=== PATIENT | male | born 1960 | race Caucasian/White ===

== ENCOUNTER 2016-10-27 16:26 | Outpatient (CLI) ==
[2016-06-22 14:23] VITALS: BMI 23.6
[2016-10-27 17:13] LABS: BASOPHILS % (AUTO) 0.7 % (0.0-3.0); EOSINOPHILS # (AUTO) 0.1 K/ul (0.0-0.7); EOSINOPHILS % (AUTO) 1.2 % (0.0-7.0); HEMATOCRIT 34.7 % (42.0-52.0); HEMOGLOBIN 12.4 g/dl (14.0-18.0); IMMATURE GRANULOCYTE % (AUTO) 1.2 % (0.0-5.0); LYMPHOCYTES # (AUTO) 0.6 K/uL (0.60-3.4); LYMPHOCYTES % (AUTO) 9.6 (10.0-50.0); MEAN CORPUSCULAR HEMOGLOBIN 31.4 pg (27.0-31.0); MEAN CORPUSCULAR HGB CONC 35.7 (31.8-35.4); MEAN CORPUSCULAR VOLUME 87.8 fl (80.0-94.0); MONOCYTES # (AUTO) 0.8 K/uL (0.4-2.0); MONOCYTES % (AUTO) 13.4 (0-10); NEUTROPHILS # (AUTO) 4.3 K/ul (2.0-6.9); NEUTROPHILS % (AUTO) 73.9; PLATELET COUNT 112 10^3/uL (140-440); RED BLOOD COUNT 3.95 10^6/ul (4.70-6.10); WHITE BLOOD COUNT 5.84 K/ul (4.2-10.2)
[2016-10-27 17:25] LABS: ALBUMIN 3.4 g/dL (3.4-5.0); ALBUMIN/GLOBULIN RATIO 0.85; ANION GAP 10.2; BILIRUBIN,TOTAL 2.12 mg/dL (0.00-1.20); BUN/CREATININE RATIO 37.36; CALCIUM 8.7 mg/dL (8.2-10.2); CREATININE 0.91 mg/dL (0.60-1.10); POTASSIUM 4.2 mmol/L (3.5-5.1); TOTAL PROTEIN 7.4 g/dL (6.4-8.2)
== END 2016-10-27 16:27 | disposition home or self-care (01) ==
LOC: LAB 16:26
PROVIDERS: ATTEND General Practice
DX: K70.30 Alcoholic cirrhosis of liver without ascites (principal); K75.9 Inflammatory liver disease, unspecified
CPT/HCPCS: 36415; 80053; 82140; 85025

== ENCOUNTER 2016-12-27 11:29 | Outpatient (CLI) ==
[2016-12-27 12:19] VITALS: BMI 20.2
== END 2016-12-27 11:30 ==
LOC: AMBL 11:29
PROVIDERS: ATTEND Internal Medicine
DX: R18.8 Other ascites (principal); K72.90 Hepatic failure, unspecified without coma

== ENCOUNTER 2016-12-27 11:49 | Inpatient (IN) | payer OTHER ==
[2016-12-27 12:19] VITALS: BMI 20.2
[2016-12-27] MEDS ORDERED: URO-JET MUCOUSMEMB STA (13:32)
[2016-12-27] MEDS ORDERED: CLINIMIX IV SCH (14:00)
[2016-12-27 14:23] LABS: BASOPHILS % (AUTO) 0.6 % (0.0-3.0); EOSINOPHILS # (AUTO) 0.1 K/ul (0.0-0.7); EOSINOPHILS % (AUTO) 1.4 % (0.0-7.0); HEMATOCRIT 31.4 % (42.0-52.0); HEMOGLOBIN 11.3 g/dl (14.0-18.0); IMMATURE GRANULOCYTE % (AUTO) 0.6 % (0.0-5.0); LYMPHOCYTES # (AUTO) 0.5 K/uL (0.60-3.4); LYMPHOCYTES % (AUTO) 9.1 (10.0-50.0); MEAN CORPUSCULAR HEMOGLOBIN 32.8 pg (27.0-31.0); MONOCYTES # (AUTO) 0.7 K/uL (0.4-2.0); MONOCYTES % (AUTO) 13.2 (0-10); NEUTROPHILS # (AUTO) 3.8 K/ul (2.0-6.9); NEUTROPHILS % (AUTO) 75.1; PLATELET COUNT 65 10^3/uL (140-440); RED BLOOD COUNT 3.45 10^6/ul (4.70-6.10); WHITE BLOOD COUNT 5.07 K/ul (4.2-10.2)
[2016-12-27 14:27] LABS: BILIRUBIN,URINE 1+ (NEGATIVE); KETONES,URINE Negative (NEGATIVE); LEUKOCYTE ESTERASE ,URINE Negative (NEGATIVE); NITRITE,URINE Negative (NEGATIVE); PH,URINE 5.5 (5-9); PROTEIN,URINE Negative (NEGATIVE); URINE, BLOOD Negative (NEGATIVE)
[2016-12-27 14:28] LABS: ADD URINE MICROSCOPIC NO
[2016-12-27 14:45] LABS: ALBUMIN 2.8 g/dL (3.4-5.0); ALBUMIN/GLOBULIN RATIO 0.85; BILIRUBIN,TOTAL 2.07 mg/dL (0.00-1.20); BUN/CREATININE RATIO 29.06; CREATININE 0.86 mg/dL (0.60-1.10); TOTAL PROTEIN 6.1 g/dL (6.4-8.2)
--- NOTE | 2016-12-27 14:57 | US ---
EXAM: Scrotal ultrasound. History: Scrotal swelling and redness and scrotal pain. Technique: Multiple sonographic images through the scrotum were obtained. Color duplex Doppler was used to interrogate vascular flow. Findings: The right testicle measures 2.7 cm x 1.3 cm x 2.2 cm and is without intratesticular mass identified. Blood flow is documented within the right testicle. The right epididymis is not hyperemic. The left testicle measures 2.2 cm x 1.5 cm x 2.0 cm and is without intratesticular mass identified. Blood flow is documented within the left testicle. The left epididymis is enlarged compared to the contralateral side. No significant hydroceles. Severe diffuse scrotal edema. Impression: 1. Severe diffuse scrotal edema. Correlate clinically for cellulitis and infection. 2. Normal bilateral testicles. 3. Asymmetric enlargement of the left epididymis could indicate epididymitis.
[2016-12-27] MEDS ORDERED: CLINIMIX E IV SCH (15:00)
[2016-12-27] MEDS: DILAUDID 2 MG/ML SYRINGE IVP PRN ×3 (15:01→23:07)
[2016-12-27] MEDS: CLINIMIX E IV SCH (15:12)
[2016-12-27 15:15] LABS: PARTIAL THROMBOPLASTIN TIME 32.9 SEC (23.9-40.0); PROTHROMBIN TIME 13.9 SEC (9.3-11.0)
[2016-12-27] MEDS: LASIX IVP SCH ×2 (15:45→17:39)
[2016-12-27] MEDS: LACTULOSE PO SCH ×2 (15:45→20:51)
--- NOTE | 2016-12-27 16:07 | DI ---
EXAM: CHEST FRONTAL VIEW HISTORY: Abdominal pain. COMPARISON: 06/22/2016 FINDINGS: Heart size and mediastinum remain within normal limits. Lungs are free of infiltrate. No consolidation or pleural fluid. There is no pneumothorax or acute bony finding. IMPRESSION: Findings within normal limits.
[2016-12-27] MEDS: ALDACTONE PO SCH (18:36)
[2016-12-27] MEDS ORDERED: PROTONIX IV 40 MG in SODIUM CHLORIDE 100 ML IV SCH (20:30)
[2016-12-27] MEDS ORDERED: PROTONIX IV ONE (20:58)
[2016-12-28] MEDS: CLINIMIX E IV SCH (03:47)
[2016-12-28] MEDS: LASIX IVP SCH (06:18)
[2016-12-28 06:29] LABS: BASOPHILS % (AUTO) 0.5 % (0.0-3.0); EOSINOPHILS # (AUTO) 0.1 K/ul (0.0-0.7); EOSINOPHILS % (AUTO) 1.6 % (0.0-7.0); HEMATOCRIT 26.2 % (42.0-52.0); HEMOGLOBIN 9.4 g/dl (14.0-18.0); IMMATURE GRANULOCYTE % (AUTO) 0.5 % (0.0-5.0); LYMPHOCYTES # (AUTO) 0.2 K/uL (0.60-3.4); LYMPHOCYTES % (AUTO) 3.7 (10.0-50.0); MEAN CORPUSCULAR HEMOGLOBIN 32.6 pg (27.0-31.0); MEAN CORPUSCULAR HGB CONC 35.9 (31.8-35.4); MONOCYTES # (AUTO) 0.5 K/uL (0.4-2.0); NEUTROPHILS # (AUTO) 4.8 K/ul (2.0-6.9); NEUTROPHILS % (AUTO) 85.7; PLATELET COUNT 46 10^3/uL (140-440); RED BLOOD COUNT 2.88 10^6/ul (4.70-6.10); WHITE BLOOD COUNT 5.63 K/ul (4.2-10.2)
[2016-12-28 06:49] LABS: ALBUMIN 2.3 g/dL (3.4-5.0); ALBUMIN/GLOBULIN RATIO 0.88; ANION GAP 9.3; BILIRUBIN,TOTAL 1.96 mg/dL (0.00-1.20); BUN/CREATININE RATIO 37.5; CALCIUM 7.6 mg/dL (8.2-10.2); CREATININE 0.72 mg/dL (0.60-1.10); POTASSIUM 4.3 mmol/L (3.5-5.1); TOTAL PROTEIN 4.9 g/dL (6.4-8.2)
[2016-12-28] MEDS: LACTULOSE PO SCH (09:16)
[2016-12-28] MEDS: ALDACTONE PO SCH (09:16)
[2016-12-28 10:01] VITALS: BP 108/68; TEMP 98
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
[2016-12-28] MEDS ORDERED: PROTONIX IV 40 MG in SODIUM CHLORIDE 100 ML IV SCH (21:00)
--- NOTE | 2016-12-29 14:48 | DS ---
PATIENT IDENTIFICATION: 56 year old male who was admitted yesterday because of abdominal pain and edema of the scrotum and prepuce. The patient was seen initially at the office. I had a conversation with him with regards to post hospital care. I told him that it would be best for him to go a jail after this hospitalization. His medications could be administered regularly, as well as his nutrition and also a good follow up. The patient did not say no to the idea. This patient is known to have cirrhosis of the liver with ascites and recurrent abdominal paracentesis. He was just discharged from [facility] on 12/26/2016 after being admitted for ascites and abdominal pain. He told me that 6 liters of fluid was obtained from his abdomen. The fluid gram stain and culture showed no bacterial growth. This patient was given Cipro 500 mg daily, #30 from [facility]. This patient, however , does not show any findings compatible with spontaneous bacterial peritonitis. HOSPITAL COURSE: This patient's initial labs consisted of a CBC showing moderate anemia with 11.3 hemoglobin, 31.4 hematocrit. WBC normal 5,070, platelet count 65,000. The ProTime 13.9, INR 1.35, PTT 32.9. Chemistry has some abnormalities, but not clinically significant. Sodium 132, chloride 97, BUN 25, sugar 123, calcium 8, total bilirubin 2.07, AST 52, ammonia 53, total protein 6.1, albumin 2.8, amylase 150, lipase 134, Procalcitonin 0.06 and was also normal at [facility]. Urinalysis was unremarkable. Serum alcohol level less than 10 mg percent. LUNGS: Clear to auscultation. HEART: Audible with good tones. ABDOMEN: Protuberant, but soft. FACE: The face is sunken. The patient, today, demanded that he be discharged. He was going home regardless. I did tell him that it would be best if he would stay and hopefully we can help him. He was not listening to any explanation. He was given Aminosyn 4.25 every 12 hours since admission hoping to increase his protein. His lungs remained clear to auscultation. The heart with normal sinus rhythm. He tried to get in touch with relatives to give him a ride. He told me in the presence of the nurse, Patricia, that he was going home and he would walk to town where his brother is. I called his sister and there was no answer. The phone was either disconnected or the number has changed. I called the sister's and I was able to talk to him, but he told me that he was at work and he could not give him a ride to his [id number]. I called his brother and I did not have any answer. I did advise Patricia, the nurse in charge to call the police, city and county, to see if they could give him a ride and if not [facility] [place]. PLAN: He was further instructed to resume the medications that was prescribed to him from [place]. He is prescribed Oxycodone 5, #45 to be taken one three times a day. This patient had been receiving more of the medication. He did fill the prescription on 12/08/16 of Oxycodone 5, #60 one twice a day. He already ran out of the medication. He was at [facility] 12/24/16 until 12/26/16. He is to see me in about two weeks and if and when he has problems requiring paracentesis that he should present to the hospitals that are capable of doing the procedure under guidance. [facility] does not have the capabilities to do that. He told me the other reason why he was going home is because his son is moving to another residence. His chemistries is essentially the same, except for the total protein and albumin, which is much lower than on admission. FINAL DIAGNOSES: 1. ALCOHOLIC CIRRHOSIS 2. HEPATITIS C POSITIVE 3. ELEVATED SERUM AMYLASE AND LIPASE, MAYBE CHRONIC PANCREATITIS 4. ASCITES SECONDARY TO THE CIRRHOSIS WITH RECURRENT ABDOMINAL PARACENTESIS ALMOST WEEKLY 5. 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 THROMBOCYTOPENIA This patient has a follow up appointment at [facility] in January. PROGNOSIS: Poor. MTDD
== END 2016-12-28 10:24 | disposition left against medical advice (07) | DRG 433 ==
LOC: MEDSURG B 11:49
PROVIDERS: ADMIT General Practice; ATTEND General Practice
DX: K70.31 Alcoholic cirrhosis of liver with ascites (principal); K86.1 Other chronic pancreatitis; D64.9 Anemia, unspecified; B18.2 Chronic viral hepatitis C; R74.8 Abnormal levels of other serum enzymes; N50.82 Scrotal pain; N50.89 Other specified disorders of the male genital organs; E77.8 Other disorders of glycoprotein metabolism; D69.6 Thrombocytopenia, unspecified; Z79.891 Long term (current) use of opiate analgesic; Z79.899 Other long term (current) drug therapy; Z98.890 Other specified postprocedural states
CPT/HCPCS: 36415; 80053; 80307; 81001; 82140; 82150; 83690; 83880; 84145; 85025; 85610; 85730; 87040; 87081; 93005; 93010; 99223; 99239

== ENCOUNTER 2017-01-03 09:22 | Emergency (ER) | payer OTHER ==
[2017-01-03 09:34] VITALS: BP 83/54; TEMP 98.6; BMI 21.2
[2017-01-03 09:53] LABS: BASOPHILS % (AUTO) 0.4 % (0.0-3.0); EOSINOPHILS % (AUTO) 0.4 % (0.0-7.0); HEMATOCRIT 31.6 % (42.0-52.0); IMMATURE GRANULOCYTE % (AUTO) 0.5 % (0.0-5.0); LYMPHOCYTES # (AUTO) 0.4 K/uL (0.60-3.4); LYMPHOCYTES % (AUTO) 5.6 (10.0-50.0); MEAN CORPUSCULAR HEMOGLOBIN 31.6 pg (27.0-31.0); MEAN CORPUSCULAR HGB CONC 34.8 (31.8-35.4); MEAN CORPUSCULAR VOLUME 90.8 fl (80.0-94.0); MONOCYTES # (AUTO) 0.8 K/uL (0.4-2.0); MONOCYTES % (AUTO) 10.2 (0-10); NEUTROPHILS # (AUTO) 6.1 K/ul (2.0-6.9); NEUTROPHILS % (AUTO) 82.9; PLATELET COUNT 82 10^3/uL (140-440); RED BLOOD COUNT 3.48 10^6/ul (4.70-6.10); WHITE BLOOD COUNT 7.32 K/ul (4.2-10.2)
[2017-01-03] MEDS ORDERED: MORPHINE 4 MG/ML SYRINGE IVP STA (10:13)
[2017-01-03 10:16] LABS: PARTIAL THROMBOPLASTIN TIME 32.8 SEC (23.9-40.0)
[2017-01-03 10:25] LABS: ALBUMIN 2.5 g/dL (3.4-5.0); ALBUMIN/GLOBULIN RATIO 0.83; ANION GAP 11.8; BILIRUBIN,TOTAL 3.97 mg/dL (0.00-1.20); BUN/CREATININE RATIO 20.98; CALCIUM 7.8 mg/dL (8.2-10.2); CREATININE 0.81 mg/dL (0.60-1.10); POTASSIUM 3.8 mmol/L (3.5-5.1); TOTAL PROTEIN 5.5 g/dL (6.4-8.2); TROPONIN I 0.012 ng/ml (0.0000-0.4000)
--- NOTE | 2017-01-03 10:40 | CT ---
EXAM: CT BRAIN HISTORY: Altered mental status TECHNIQUE: CT brain without intravenous contrast. 5-mm axial sections with Reformations. COMPARISON: FINDINGS: Brain is unremarkable without distinct evidence of hemorrhage or large vessel distribution recent ischemic infarction. There is no suggestion of acute hydrocephalus or subdural fluid collection. N o mass or mass effect. Cranium is within normal limits. Mastoid air cells are aerated. The visualized paranasal sinuses are clear. IMPRESSION: No acute intracranial process.
--- NOTE | 2017-01-03 10:44 | CT ---
EXAM: CT chest without contrast. HISTORY: Cough. COMPARISON: 05/03/2016. Radiograph 12/27/2016. TECHNIQUE: Multiple axial images of the chest were obtained without intravenous contrast. Images w ere reformatted in the sagittal and coronal planes. FINDINGS: Evaluation for lymphadenopathy is limited due to lack of intravenous contrast. Heart siz e is normal. No pericardial effusion. Atherosclerotic calcifications are present. Small foci of c onsolidation seen in the anterior left upper lobe and lingula on axial image 16 and 28 in the anteri or right upper lobe on axial image 14. The lungs are otherwise clear save for subsegmental atelecta sis at the lung bases and calcified granulomatous changes. No pleural effusion or pneumothorax iden tified. Limited images of the upper abdomen demonstrate cirrhosis with ascites and splenomegaly. Old compre ssion deformity of T7 noted. IMPRESSION: 1. Small foci of atelectasis or pneumonitis in the left and right upper lobes. 2. Cirrhosis with sequela of portal hypertension.
--- NOTE | 2017-01-03 10:50 | CT ---
EXAM: CT of the abdomen pelvis without contrast History: Abdominal pain, history of hepatitis C and ascites. Comparison: Chest CT 12/24/2016, CT abdomen pelvis 08/03/2016 Technique: Multiplanar CT images through the abdomen and pelvis were obtained without the administr ation of IV contrast Findings: Lung bases are free of consolidation. No acute osseous abnormalities. Nodular cirrhotic liver again noted. Cholelithiasis. Large volume ascites again appreciated. Sple nomegaly. Calcified granulomas within the spleen. Umbilical hernia containing fluid and question s mall knuckle of bowel similar to the prior study. There is no specific evidence for bowel obstructi on. Wall thickening of the right side of the colon again identified. There is circumferential wall thickening of the distal esophagus. No definite pancreatic lesions. No renal stones and no hydron ephrosis. Upper abdominal collateral vessels/varices again appreciated. Anasarca and mesenteric ed jose m have worsened. Mild bladder distension but no definite bladder wall thickening. Left inguinal hernia again seen containing fluid. Scattered colonic stool. No free intraperitoneal air. Adrenal glands are unremarkable. Impression: 1. Cirrhosis with stigmata of portal venous hypertension including large volume ascites, splenomega ly and varices, similar to the prior study. The wall thickening of the right side of the colon is p robably due to portal hypertensive enteropathy. 2. Worsening anasarca. 3. Cholelithiasis. 4. Umbilical hernia containing fluid and question small knuckle of bowel similar to the prior study . There is no evidence for bowel obstruction.
--- NOTE | 2017-01-03 12:00 | ED.PDOC ---
General ED Provider: Dr. DONNELL AUSTIN Chief Complaint: Altered Mental Status Stated Complaint: altered mental status Time Seen by Physician: 09:30 (history of cirrhosis , hepc tense ascites ) Information Source: EMT Exam Limitations: No limitations [facility] and Triage Documentation Reviewed and Agree: Yes (was treated at [facility] and released at [facility] 12/27/16 LEFT AMA ) Neurological Complaint Exam - Altered Mental Status Complaint/Exam Current Mental Status: Confusion, Agitation Last Known Well: UNCERTAIN Onset: Gradual Duration: OVER 2 , 3 WEEKS Symptoms Are: Still present Timing: Constant Initial Severity: Moderate Current Severity: Moderate Eye Deviation Present: No Character: Reports: Confusion, Agitation Aggravating: Reports: None Associated Signs and Symptoms: Reports: Weakness. Denies: Dizziness, Headache, Fever, Illness, Nuchal rigidity, Seizure, Nausea, Vomiting, Recently depressed, Trauma Related History: Reports: Similar episode Cardiac Risk Factors: Reports: None Related Surgical History: Reports: None Carotid Bruit Present: No Glascow Coma Scale (see protocol): 14 Nystagmus Present: No Focal Weakness: Present: None Focal Sensory Loss: Present: None Gait: Abnormal Babinski Sign: Negative Right, Negative Left Thrombolytics Considered: No Differential Diagnoses: Other (SBP. END STAGE LIVER ) Review of Systems - Review Of Systems Constitutional: Reports: No symptoms Eyes: Reports: No symptoms Ears, Nose, Mouth, Throat: Reports: No symptoms Respiratory: Reports: No symptoms Cardiac: Reports: No symptoms GI: Reports: No symptoms : Reports: No symptoms Musculoskeletal: Reports: No symptoms Skin: Reports: No symptoms Neurological: Reports: Cognitive dysfunction Endocrine: Reports: No symptoms Hematologic/Lymphatic: Reports: No symptoms All Other Systems: Reviewed and Negative Past Medical History - Past Medical History Endocrine: Reports: None Cardiovascular: Reports: None Respiratory: Reports: None Hematological: Reports: None Gastrointestinal: Reports: Liver (]HEP C, ETOH CIRRHOSIS) Genitourinary: Reports: None Neuro/Psych: Reports: None Musculoskeletal: Reports: None Cancer: Reports: None Other Pertinent Past Medical History: KNEE SURGERIES X 4 HEP C; - Surgical History General Surgical History: Reports: Orthopedic (KNEE SURGERIES X 4) - Family History Family History: Reports: Unknown - Social History Smoking Status: Never smoker Hx Substance Use: No Alcohol Screening: None Physical Exam - Physical Exam Appearance: Ill-appearing Ill-appearing: Severe Pain Distress: Severe Eyes: RODO, EOMI, Conjunctiva clear ENT: Ears normal, Nose normal, Oropharynx normal Respiratory: Airway patent, Breath sounds clear, Breath sounds equal, Respirations nonlabored Cardiovascular: RRR, Pulses normal, No rub, No murmur GI/: Tender (ASCITES NOTED ) Musculoskeletal: Normal strength, ROM intact, No edema, No calf tenderness Skin: Warm, Dry, Normal color Neurological: Disoriented Psychiatric: Affect appropriate, Mood appropriate Critical Care Note - Critical Care Note Total Time (mins): 0 Course - Course Hematology/Chemistry: 01/03/17 09:50 01/03/17 09:50 Orders, Labs, Meds: Lab Review 01/03/17 01/03/17 09:50 09:55 WBC 7.32 RBC 3.48 L Hgb 11.0 L Hct 31.6 L MCV 90.8 MCH 31.6 H MCHC 34.8 RDW Coeff of Marine 17.3 H Plt Count 82 L Immature Gran % (Auto) 0.5 Neut % (Auto) 82.9 Lymph % (Auto) 5.6 L [place] % (Auto) 10.2 H Eos % (Auto) 0.4 Baso % (Auto) 0.4 Immature Gran # (Auto) 0.0 Neut # 6.1 Lymph # 0.4 L [place] # 0.8 Eos # 0.0 Baso # 0.0 PT 14.0 H INR 1.36 APTT 32.8 Sodium 135 L Potassium 3.8 Chloride 104 Carbon Dioxide 23 Anion Gap 11.8 BUN 17 Creatinine 0.81 Estimated GFR (MDRD) 98.00 BUN/Creatinine Ratio 20.98 Glucose 113 H Lactic Acid 13.5 Calcium 7.8 L Total Bilirubin 3.97 H AST 63 H ALT 41 Alkaline Phosphatase 81 Ammonia 104 H Total Creatine Kinase 43 Troponin I 0.0120 Total Protein 5.5 L Albumin 2.5 L Globulin 3.0 Albumin/Globulin Ratio 0.83 Amylase 111 Lipase 89 H Orders Category Date Time Status EKG-(ED ONLY) Stat CARDIO 01/03/17 09:34 Completed ED IV/MEDIPORT/POWERPORT .ONCE EMERGENCY 01/03/17 09:34 Active AMMONIA Stat LAB 01/03/17 09:55 Completed AMYLASE Stat LAB 01/03/17 09:50 Completed BLOOD CULTURE Stat LAB 01/03/17 09:50 Received CBC W/ AUTO DIFF Stat LAB 01/03/17 09:50 Completed COMPREHENSIVE METABOLIC PANEL Stat LAB 01/03/17 09:50 Completed CREATINE KINASE Stat LAB 01/03/17 09:50 Completed LACTIC ACID Stat LAB 01/03/17 09:50 Completed LIPASE Stat LAB 01/03/17 09:50 Completed PARTIAL THROMBOPLASTIN TIME Stat LAB 01/03/17 09:50 Completed PT WITH INR Stat LAB 01/03/17 09:50 Completed TROPONIN I Stat LAB 01/03/17 09:50 Completed 0.9 % Sodium Chloride [Saline Flush] MEDS 01/03/17 09:32 Active 1 syr IVF PRN PRN Morphine Sulfate [Morphine 4 mg/ml Syringe] MEDS 01/03/17 10:13 Discontinued 2 mg IVP ONCE STA CT ABDOMEN/PELVIS WO CONTRAST Stat RADS 01/03/17 09:[address] CHEST W/O CONTRAST Stat RADS 01/03/17 09:[address] HEAD W/O CONTRAST Stat RADS 01/03/17 09:34 Completed Medications Generic Name Dose Route Start Last Admin Trade Name Freq PRN Reason Stop Dose Admin Sodium Chloride 1 syr 01/03/17 09:32 01/03/17 10:28 Saline Flush IVF 1 syr PRN PRN Administration To flush IV Discontinued Medications Generic Name Dose Route Start Last Admin Trade Name Freq PRN Reason Stop Dose Admin Morphine Sulfate 2 mg 01/03/17 10:13 01/03/17 10:21 Morphine 4 Mg/Ml Syringe IVP 01/03/17 10:14 2 mg ONCE STA Administration Vital Signs: Temp Pulse Resp BP Pulse Ox 01/03/17 09:24 98.6 F 86 20 83/54 L 0 L Departure - Departure Time of Disposition: 12:09 Disposition: HOME SELF-CARE Discharge Problem: Altered mental status, Abdominal pain Acute liver failure Qualifiers: Hepatic coma status: without hepatic coma Qualifier Code: (K72.00) Acute and subacute hepatic failure without coma Instructions: Abdominal Pain (ED) Condition: Good Pt referred to PMD for follow-up: No Additional Instructions: Please call your Family Physician as soon as possible to schedule a follow-up appointment. Allergies/Adverse Reactions: Allergies acetaminophen [From Tylenol] Adverse Reaction (Verified 06/22/16 10:39) STATES CANNOT TAKE DUE TO LIVER DISEASE Home Medications: Ambulatory Orders Ciprofloxacin/Ciprofloxa HCl [Ciprofloxacin ER 500 mg Tablet] 1 tab PO DAILY Furosemide [Lasix] 3 tab PO DAILY 01/03/17 Spironolactone 100 mg PO TID 01/03/17
== END 2017-01-03 13:20 | disposition home or self-care (01) ==
LOC: ED 09:22
DX: R41.82 Altered mental status, unspecified (principal); K72.00 Acute and subacute hepatic failure without coma; K70.31 Alcoholic cirrhosis of liver with ascites
CPT/HCPCS: 36415; 80053; 82140; 82150; 82550; 83605; 83690; 84484; 85025; 85610; 85730; 87040; 93005; 93010; 96374; 99285

== ENCOUNTER 2017-01-03 13:14 | Outpatient (CLI) ==
[2017-01-03 09:34] VITALS: BMI 21.2
== END 2017-01-03 13:15 ==
LOC: AMBL 13:14
PROVIDERS: ATTEND Internal Medicine
DX: K74.60 Unspecified cirrhosis of liver (principal); R41.82 Altered mental status, unspecified; Z91.14 Patient's other noncompliance with medication regimen

== ENCOUNTER 2017-01-15 09:35 | Outpatient (CLI) ==
[2017-01-15 10:08] LABS: COCAIN SCREEN,URINE NEGATIVE (NEGATIVE)
== END 2017-01-15 09:36 | disposition home or self-care (01) ==
LOC: NONPT 09:35
PROVIDERS: ATTEND General Practice
DX: K70.31 Alcoholic cirrhosis of liver with ascites (principal); K72.90 Hepatic failure, unspecified without coma; F19.21 Other psychoactive substance dependence, in remission; Z79.899 Other long term (current) drug therapy
CPT/HCPCS: 80306; 82542

== ENCOUNTER 2017-01-20 06:00 | Outpatient (CLI) | END 2017-01-20 06:01 | disposition home or self-care (01) | LOC: AMBL 06:00 | PROVIDERS: ATTEND Family Medicine | DX: R40.4 Transient alteration of awareness (principal); R60.0 Localized edema; B19.20 Unspecified viral hepatitis C without hepatic coma; R17 Unspecified jaundice; R00.0 Tachycardia, unspecified ==

== ENCOUNTER 2017-01-26 02:18 | Outpatient (CLI) | END 2017-01-26 02:19 | LOC: AMBL 02:18 | PROVIDERS: ATTEND Family Medicine | DX: M25.552 Pain in left hip (principal); W01.0XXA Fall on same level from slipping, tripping and stumbling without subsequent striking against object, initial encounter ==

== ENCOUNTER 2017-01-28 03:31 | Outpatient (CLI) | END 2017-01-28 03:32 | LOC: AMBL 03:31 | PROVIDERS: ATTEND Emergency Medicine | DX: R07.89 Other chest pain (principal); M54.9 Dorsalgia, unspecified; R52 Pain, unspecified; K74.60 Unspecified cirrhosis of liver; R18.8 Other ascites; R60.9 Edema, unspecified; S22.31XD Fracture of one rib, right side, subsequent encounter for fracture with routine healing; S42.309D Unspecified fracture of shaft of humerus, unspecified arm, subsequent encounter for fracture with routine healing; W19.XXXD Unspecified fall, subsequent encounter ==